=== PATIENT | male | born 1980 | race Caucasian/White ===

== ENCOUNTER 2019-03-25 09:10 | Emergency (ER) | payer MEDICAID ==
[~2019-03-25] VITALS: Ht 180.3 cm; Wt 107.0 kg
[2019-03-25 09:19] VITALS: BP 126/73
== END 2019-03-25 10:09 | disposition home or self-care (01) ==
LOC: ED 09:10
DX: M54.5 Low back pain (principal); Z98.890 Other specified postprocedural states
CPT/HCPCS: J3010

== ENCOUNTER 2019-04-03 08:50 | Emergency (ER) | payer MEDICAID ==
[~2019-04-03] VITALS: Ht 180.3 cm; Wt 107.0 kg
[2019-04-03 08:58] VITALS: Ht 180.3 cm; Wt 107.0 kg
[2019-04-03 11:38] VITALS: BP 136/88
== END 2019-04-03 11:38 | disposition home or self-care (01) ==
LOC: ED 08:50
DX: M51.36 Other intervertebral disc degeneration, lumbar region (principal); Z98.890 Other specified postprocedural states